=== PATIENT | female | born 1965 | race Caucasian/White ===

== ENCOUNTER 2018-10-24 09:21 | Emergency (ER) | payer BC ==
[~2018-10-24] VITALS: Ht 160 cm; Wt 87.3 kg
[2018-10-24] MEDS ORDERED: predniSONE 20 mg tablet PO ONE (09:35)
[2018-10-24] MEDS ORDERED: albuterol 2.5 MG/3 ML nebule NEB ONE (09:35)
[2018-10-24 10:18] VITALS: BP 139/95
[2018-10-24] MEDS ORDERED: ALBU18HF2 INH (10:55)
[2018-10-24] MEDS ORDERED: PRED20TA PO (10:55)
== END 2018-10-24 11:05 | disposition home or self-care (01) ==
LOC: ER 09:21
DX: J45.901 Unspecified asthma with (acute) exacerbation (principal); F32.9 Major depressive disorder, single episode, unspecified; F17.200 Nicotine dependence, unspecified, uncomplicated
CPT/HCPCS: 94640; 94760; 99283; J7512

== ENCOUNTER 2025-02-18 11:51 | Emergency (ER) | payer BC, MEDICAID ==
[~2025-02-18] VITALS: Ht 160 cm; Wt 96.0 kg
[~2025-02-18 11:51] MED LIST: ALBU18HF2 INH
[2025-02-18] MEDS ORDERED: ketorolac trometh 30MG/ML vial 30 MG/ML VIAL IM ONE (13:00)
[2025-02-18] MEDS: ketorolac trometh 15mg/ml vial 15 MG/ML ML IM ONE (13:24)
[2025-02-18] MEDS ORDERED: GABA300C PO (13:56)
[2025-02-18] MEDS ORDERED: CYCL-394 PO (13:59)
[2025-02-18 14:53] VITALS: BP 138/88; PULSE 88; RESP 16; TEMP 97.7; O2SAT 98
== END 2025-02-18 14:54 | disposition home or self-care (01) ==
LOC: ER 11:51
DX: M54.9 Dorsalgia, unspecified (principal); J45.909 Unspecified asthma, uncomplicated; F32.A Depression, unspecified
CPT/HCPCS: 96372; 99283; J1885